=== PATIENT | male | born 1950 | race African-American/Black ===

== ENCOUNTER 2019-11-21 12:14 | Emergency (ER) | payer OTHER, MEDICAID ==
[~2019-11-21 12:14] MED LIST: AMLO5TAB15 PO; ASPI325T4 PO; ATO40T PO; CELE200C PO; FERR-20 PO; GABA300C10 PO; METF-371 PO; METO-169 PO; MIRT1TAB38 PO
== END 2019-11-21 12:46 | disposition left against medical advice (07) ==
LOC: EDBD 12:14 → ER 12:14
DX: R07.89 Other chest pain (principal); E11.9 Type 2 diabetes mellitus without complications; E78.5 Hyperlipidemia, unspecified; I10 Essential (primary) hypertension; F17.210 Nicotine dependence, cigarettes, uncomplicated; Z88.0 Allergy status to penicillin; Z79.899 Other long term (current) drug therapy